=== PATIENT | male | born 1955 | race Caucasian/White ===

== ENCOUNTER 2019-08-31 14:32 | Emergency (ER) | payer BC ==
[~2019-08-31] VITALS: Ht 180.3 cm; Wt 81.6 kg
[~2019-08-31 14:32] MED LIST: OMEP20TA20 PO; ROSU20TA2 PO
--- NOTE | 2019-08-31 14:45 | NUR ---
PT BIB SELF C/O RIGHT FOREARM LACERATION S/P FALLING OFF A LADDER. DENIES HEAD TRAUMA, PT IS AAOX4, NOT IN RESPIRATORY DISTRESS, V/S STABLE, KEPT RESTED AND COMFORTABLE, WILL CONTINUE TO MONITOR.
--- NOTE | 2019-08-31 14:58 | NUR ---
CHAITANYA SANEDRS AT BEDSIDE FOR EVAL.
--- NOTE | 2019-08-31 15:00 | NUR ---
WOUND CLEANING DONE BY LOCOMOTIVE MECHANIC.
[2019-08-31] MEDS ORDERED: HYDROCODONE/APAP 5/325MG 1 EACH TABLET ONE (15:04)
[2019-08-31] MEDS ORDERED: ONDANSETRON 4 MG TAB.RAPDIS ONE (15:04)
[2019-08-31] MEDS ORDERED: LIDOCAINE 1%-EPI 1:100,000 20 ML VIAL ONE (15:04)
--- NOTE | 2019-08-31 15:20 | NUR ---
WEIGHT ENGINEER AT BEDSIDE FOR XRAY.
[2019-08-31] MEDS ORDERED: HYDROCODONE/APAP 5/325MG 1 EACH TABLET PO ONE (15:30)
[2019-08-31] MEDS ORDERED: ONDANSETRON 4 MG TAB.RAPDIS PO ONE (15:30)
[2019-08-31 16:49] VITALS: BP 134/78
--- NOTE | 2019-08-31 16:49 | NUR ---
SUTURING DONE BY CHAITANYA RAMOS
[2019-08-31] MEDS ORDERED: CEPHALEXIN MONOHYDRATE 500 MG CAPSULE PO ONE ×2 (17:00→17:05)
[2019-08-31] MEDS ORDERED: SULFAMETH/TRIMETH 800/160 MG 1 UDTAB TABLET PO ONE (17:00)
[2019-08-31] MEDS ORDERED: SULFAMETH/TRIMETH 800/160 MG 1 UDTAB TABLET ONE (17:05)
--- NOTE | 2019-08-31 17:12 | NUR ---
WOUND CLEANING AND WRAPPING DONE BY COMPLIANCE NURSE.
--- NOTE | 2019-08-31 17:34 | NUR ---
Patient discharged to home in stable condition. Written and verbal after care instructions given. Patient verbalizes understanding of instruction.
== END 2019-08-31 17:35 | disposition home or self-care (01) ==
LOC: ER 14:34
DX: S51.812A Laceration without foreign body of left forearm, initial encounter (principal); M19.012 Primary osteoarthritis, left shoulder; M79.602 Pain in left arm; K21.9 Gastro-esophageal reflux disease without esophagitis; E78.5 Hyperlipidemia, unspecified; F10.10 Alcohol abuse, uncomplicated; F17.200 Nicotine dependence, unspecified, uncomplicated; Y90.9 Presence of alcohol in blood, level not specified; W11.XXXA Fall on and from ladder, initial encounter; Y93.89 Activity, other specified; Y92.89 Other specified places as the place of occurrence of the external cause; Y99.8 Other external cause status
CPT/HCPCS: 12004; 73030; 73060; 73090; 73130; 99284; A6403; J3490; Q0162

== ENCOUNTER 2019-09-22 08:35 | Emergency (ER) | payer BC ==
[~2019-09-22] VITALS: Ht 172.7 cm; Wt 83.9 kg
--- NOTE | 2019-09-22 08:52 | NUR ---
DR. DICKINSON CONSULTED
--- NOTE | 2019-09-22 08:55 | NUR ---
PT BIB C/O LACERATION TO R [facility]RIST FROM [facility] THIS MORNING. PT AAOX4, VSS, BREATHING EVEN AND UNLABORED W/ NAD, AMBULATORY. PT CONNECTED TO THE MONITOR.
--- NOTE | 2019-09-22 09:48 | NUR ---
ADDRESSING MACHINE OPERATOR AT BEDSIDE FOR EVAL
[2019-09-22] MEDS ORDERED: LIDOCAINE 1%-EPI 1:100,000 20 ML VIAL ONE (10:11)
[2019-09-22 11:52] VITALS: BP 134/81
--- NOTE | 2019-09-22 11:52 | NUR ---
Patient discharged to home in stable condition. Written and verbal after care instructions given. Patient verbalizes understanding of instruction.
== END 2019-09-22 11:53 | disposition home or self-care (01) ==
LOC: ER 08:35
DX: S61.511A Laceration without foreign body of right wrist, initial encounter (principal); E78.5 Hyperlipidemia, unspecified; K21.9 Gastro-esophageal reflux disease without esophagitis; F17.200 Nicotine dependence, unspecified, uncomplicated; Z79.899 Other long term (current) drug therapy; W26.8XXA Contact with other sharp object(s), not elsewhere classified, initial encounter; Y93.89 Activity, other specified; Y92.89 Other specified places as the place of occurrence of the external cause; Y99.8 Other external cause status
CPT/HCPCS: 12044; 73110; 99284; A6403; J3490

== ENCOUNTER 2019-09-25 14:20 | Outpatient (CLI) | payer BC | END 2019-09-25 23:59 | disposition home or self-care (01) | LOC: WOU 14:20 | PROVIDERS: ATTEND Surgery | DX: S66.821D Laceration of other specified muscles, fascia and tendons at wrist and hand level, right hand, subsequent encounter (principal); S61.511D Laceration without foreign body of right wrist, subsequent encounter; W29.3XXD Contact with powered garden and outdoor hand tools and machinery, subsequent encounter; Z79.82 Long term (current) use of aspirin | CPT/HCPCS: G0463 ==

== ENCOUNTER 2019-10-09 08:40 | Outpatient (CLI) | payer BC | END 2019-10-09 23:59 | disposition home or self-care (01) | LOC: WOU 08:40 | PROVIDERS: ATTEND Surgery | DX: S61.511D Laceration without foreign body of right wrist, subsequent encounter (principal); S66.821D Laceration of other specified muscles, fascia and tendons at wrist and hand level, right hand, subsequent encounter; W29.3XXD Contact with powered garden and outdoor hand tools and machinery, subsequent encounter; Z79.82 Long term (current) use of aspirin | CPT/HCPCS: G0463 ==

== ENCOUNTER 2019-10-19 12:50 | Outpatient (CLI) | payer BC | END 2019-10-19 23:59 | disposition home or self-care (01) | LOC: WOU 12:50 | PROVIDERS: ATTEND Surgery | DX: S61.511D Laceration without foreign body of right wrist, subsequent encounter (principal); S66.821D Laceration of other specified muscles, fascia and tendons at wrist and hand level, right hand, subsequent encounter; W45.8XXD Other foreign body or object entering through skin, subsequent encounter | CPT/HCPCS: G0463 ==

== ENCOUNTER 2020-05-06 13:27 | Emergency (ER) | payer BC ==
[~2020-05-06] VITALS: Ht 180.3 cm; Wt 77.1 kg
--- NOTE | 2020-05-06 13:49 | NUR ---
DR RICO AT BEDSIDE FOR EVAL.
[2020-05-06] MEDS ORDERED: LIDOCAINE HCL/PF 1% 30 ML VIAL TP ONE (14:00)
--- NOTE | 2020-05-06 14:00 | NUR ---
RADIOLOGY AT BEDSIDE FOR EVAL.
[2020-05-06] MEDS ORDERED: LIDOCAINE /MPF 1% VIAL 5 ML VIAL ONE ×2 (14:03→14:17)
--- NOTE | 2020-05-06 15:25 | NUR ---
DR RICO AT BEDSIDE FOR LACERATION REPAIR.
--- NOTE | 2020-05-06 15:53 | NUR ---
PROVIDED W/ WOUND CARE. D/C HOME W/ PRESCRIPTION IN STABLE CFONDITION.
[2020-05-06 15:55] VITALS: BP 136/74
== END 2020-05-06 15:56 | disposition home or self-care (01) ==
LOC: ER 13:36
DX: S61.011A Laceration without foreign body of right thumb without damage to nail, initial encounter (principal); E78.5 Hyperlipidemia, unspecified; K21.9 Gastro-esophageal reflux disease without esophagitis; Z98.890 Other specified postprocedural states; Z79.899 Other long term (current) drug therapy; W22.8XXA Striking against or struck by other objects, initial encounter; Y93.89 Activity, other specified; Y92.89 Other specified places as the place of occurrence of the external cause; Y99.8 Other external cause status
CPT/HCPCS: 12002; 73140; 99283; A6403; J3490 ×3

== ENCOUNTER 2020-05-16 07:47 | Emergency (ER) | payer BC ==
[~2020-05-16] VITALS: Ht 180.3 cm; Wt 79.4 kg
[2020-05-16 07:53] VITALS: BP 136/77
--- NOTE | 2020-05-16 08:05 | NUR ---
SUTURE REMOVED BY
--- NOTE | 2020-05-16 08:11 | NUR ---
Patient discharged to home in stable condition. Written and verbal after care instructions given. Patient verbalizes understanding of instruction.
== END 2020-05-16 08:14 | disposition home or self-care (01) ==
LOC: ER 07:47
DX: S61.011D Laceration without foreign body of right thumb without damage to nail, subsequent encounter (principal); E78.5 Hyperlipidemia, unspecified; K21.9 Gastro-esophageal reflux disease without esophagitis; Z79.899 Other long term (current) drug therapy; X58.XXXD Exposure to other specified factors, subsequent encounter

== ENCOUNTER 2021-06-29 13:04 | Emergency (ER) | payer BC ==
[~2021-06-29] VITALS: Ht 177.8 cm; Wt 81.6 kg
[2021-06-29 13:32] VITALS: BP 135/81
--- NOTE | 2021-06-29 13:45 | NUR ---
SURFBOARD MAKER AT BEDSIDE FOR XRAY.
--- NOTE | 2021-06-29 14:40 | NUR ---
L KNEE IMMOBILIZER AND CRUTCHES PROVIDED.
--- NOTE | 2021-06-29 14:47 | NUR ---
Patient discharged to home in stable condition. Written and verbal after care instructions given. Patient verbalizes understanding of instruction.
== END 2021-06-29 14:48 | disposition home or self-care (01) ==
LOC: ER 13:06
DX: S83.8X2A Sprain of other specified parts of left knee, initial encounter (principal); E78.5 Hyperlipidemia, unspecified; K21.9 Gastro-esophageal reflux disease without esophagitis; F17.200 Nicotine dependence, unspecified, uncomplicated; Z79.899 Other long term (current) drug therapy; W01.0XXA Fall on same level from slipping, tripping and stumbling without subsequent striking against object, initial encounter; Y93.89 Activity, other specified; Y92.89 Other specified places as the place of occurrence of the external cause; Y99.8 Other external cause status
CPT/HCPCS: 73564-TC

== ENCOUNTER 2024-02-25 14:33 | Emergency (ER) | payer BC ==
[~2024-02-25] VITALS: Ht 177.8 cm; Wt 79.4 kg
[2024-02-25] MEDS ORDERED: LIDOCAINE 5% (PATCH) 1 EA PATCH TP ONE (16:47)
[2024-02-25] MEDS ORDERED: KETOROLAC TROMETHAMINE 15 MG/ML VIAL ONE (16:47)
[2024-02-25] MEDS ORDERED: CYCLOBENZAPRINE 10 MG TABLET ONE (16:48)
[2024-02-25] MEDS ORDERED: ACETAMINOPHEN ES 500 MG TABLET ONE (16:48)
[2024-02-25] MEDS: CYCLOBENZAPRINE 10 MG TABLET PO ONE (17:04)
[2024-02-25] MEDS: ACETAMINOPHEN ES 500 MG TABLET PO ONE (17:04)
[2024-02-25] MEDS: LIDOCAINE 5% (PATCH) 1 EA PATCH TP ONE (17:04)
[2024-02-25] MEDS: KETOROLAC TROMETHAMINE 15 MG/ML VIAL IM ONE (17:04)
[2024-02-25] MEDS ORDERED: ACET-2605 PO (17:58)
[2024-02-25] MEDS ORDERED: CYCL5TAB PO (17:58)
[2024-02-25] MEDS ORDERED: IBUP-1955 PO (17:58)
[2024-02-25 18:08] VITALS: BP 140/75; TEMP 98; O2SAT 99
== END 2024-02-25 18:10 | disposition home or self-care (01) ==
LOC: ER 14:33
DX: M54.50 Low back pain, unspecified (principal); E78.5 Hyperlipidemia, unspecified; K21.9 Gastro-esophageal reflux disease without esophagitis; Z79.899 Other long term (current) drug therapy
CPT/HCPCS: 99284; 96372; J1885